=== PATIENT | female | born 1980 | race Caucasian/White ===

== ENCOUNTER 2020-07-15 16:53 | Emergency (ER) | payer MEDICAID ==
--- NOTE | 2020-07-15 17:36 | EDM.PDOC ---
ED HPI GENERAL MEDICAL PROBLEM - General Chief Complaint: Skin Complaint Stated Complaint: POSSIBLE LICE Time Seen by Provider: 07/15/20 17:15 - History of Present Illness INITIAL COMMENTS - FREE TEXT/NARRATIVE: HISTORY AND PHYSICAL: History of present illness: This is a 39-year-old female with no significant past medical history who presents ER today secondary to wanting to be evaluated to see if she has lice. She reports that she was at her aunt's house in [place] when her aunt was braiding her daughter's hair and noticed a lice in her hair. Mother reports that she drove down from [place] back home where she lives and came here for second opinion to see if her her and her daughter had lice. She reports that she has 6 children who live at home with her. She reports that she sleeps with her daughter and is concerned that if her daughter has lice that she has lice to. She reports that she also has psoriasis in her scalp so she has been itching constantly ever since she was told that she may have lice. Mother denies any other complaints Review of systems: As per history of present illness and below otherwise all systems reviewed and negative. Past medical history: As per history of present illness and as reviewed below otherwise noncontributory. Surgical history: As per history of present illness and as reviewed below otherwise noncontributory. Social history: No reported history of drug abuse. Family history: As per history of present illness and as reviewed below otherwise noncontributory. Physical exam: This patient was seen and evaluated during the 2019 SARS-CoV-2 novel coronavirus pandemic period. Community viral transmission is ongoing at time of this encounter and the emergency department is operating under pandemic response procedures. Constitutional: Patient is oriented to person, place, and time. Appears well- developed and well-nourished. No distress. HEENT: Moist mucous membranes Head: Normocephalic and atraumatic Eyes: Right eye exhibits no discharge. Left eye exhibits no discharge. No scleral icterus Neck: Normal range of motion. No tracheal deviation present. Cardiovascular: Normal rate and regular rhythm. Pulmonary: Effort normal, no respiratory distress. Abdominal: No distention Musculoskeletal: Normal range of motion Neurologic: Alert and oriented to person, place and time. Skin: [place], warm and dry. Psychiatric: Normal mood and affect. Behavior is normal. Judgment and thought content normal. Nursing note and vital signs have been reviewed Patient's physical exam is significant for no nits or lice identified in her scalp. Diagnostics: [] Therapeutics: [] Assessment and plan: 39-year-old female who presents ER today for evaluation of possible lice. Patient's daughter has lice that was identified by her aunt. After evaluating patient's daughter there does appear to be nits and I did see 1 bug that appeared to be lice in her scalp. I recommended to the patient that she should initiate therapy with antilice treatment and to treat her home by washing all sheets and putting everything in a bag. Definitive disposition and diagnosis as appropriate pending reevaluation and review of above. - Related Data Home Meds: Home Meds Permethrin [Permethrin 1% lotion] 60 ml TP WEEKLY #2 bottle 07/15/20 [Rx] ED ROS GENERAL - Review of Systems Review Of Systems: See Below ED EXAM, SKIN/RASH Exam: See Below Departure - Departure Time of Disposition: 17:32 Disposition: Home, Self-Care 01 Condition: Good Clinical Impression: Head lice - Discharge Information Instructions: Lice, Adult Referrals: Parvin Hernandez NP [Primary Care Provider] - Additional Instructions: You have been seen and evaluated in ER today secondary to concerns for head lice. Although we are unable to identify any nits or lice in her hair, it does appear that your daughter does have infestation of lice/nits identified. You will be called in a prescription for permethrin 1% to use as directed. The following information is given to patients seen in the emergency department who are being discharged to home. This information is to outline your options for follow-up care. We provide all patients seen in our emergency department with a follow-up referral. The need for follow-up, as well as the timing and circumstances, are variable depending upon the specifics of your emergency department visit. If you don't have a primary care physician on staff, we will provide you with a referral. We always advise you to contact your personal physician following an emergency department visit to inform them of the circumstance of the visit and for follow-up with them and/or the need for any referrals to a consulting specialist. The emergency department will also refer you to a specialist when appropriate. This referral assures that you have the opportunity for follow-up care with a specialist. All of these measure are taken in an effort to provide you with optimal care, which includes your follow-up. Under all circumstances we always encourage you to contact your private physician who remains a resource for coordinating your care. When calling for follow-up care, please make the office aware that this follow-up is from your recent emergency room visit. If for any reason you are refused follow-up, please contact the [facility] Department at and asked to speak to the emergency department charge nurse. [facility] [address] [place] [address] [address]
== END 2020-07-15 17:59 | disposition home or self-care (01) ==
LOC: MW.ED 16:53
DX: B85.0 Pediculosis due to Pediculus humanus capitis (principal)
CPT/HCPCS: 99282; 99283

== ENCOUNTER 2021-05-17 11:26 | Emergency (ER) | payer MEDICAID ==
[2021-05-17] MEDS ORDERED: Sodium Chloride 0.9% 10 ML Syringe FLUSH PRN (11:43)
[2021-05-17] MEDS ORDERED: Lactated Ringers 1,000 ML IV ONE (11:43)
[2021-05-17] MEDS ORDERED: Ondansetron 4 MG/2 ML SDV IVPUSH ONE (11:43)
[2021-05-17] MEDS ORDERED: Sodium Chloride 0.9% 2.5 ML Syringe FLUSH PRN (11:43)
[2021-05-17] MEDS ORDERED: Loperamide 2 MG Cap PO STA (11:45)
[2021-05-17] MEDS ORDERED: Pantoprazole 40 MG Tab.CR PO STA (11:45)
[2021-05-17] MEDS ORDERED: Acetaminophen 325 MG Tab PO ONE (12:19)
[2021-05-17 12:25] LABS: BLOOD UREA NITROGEN,BUN 11 mg/dL (7.0-18.0); CARBON DIOXIDE,CO2 23.8 mmol/L (21.0-32.0); CHLORIDE,CL 103 mmol/L (98-107); GLUCOSE RANDOM 105 mg/dL (74-106); LIPASE 36 U/L (73-393); POTASSIUM,K 3.6 mmol/L (3.5-5.1); SODIUM,NA 138 mmol/L (136-145)
[2021-05-17] MEDS ORDERED: Iopamidol 755 MG/ML 500 ML Multipack Bottle IVPUSH STA (13:34)
== END 2021-05-17 15:53 ==
LOC: MW.ED 11:26
DX: R19.7 Diarrhea, unspecified (principal); R11.2 Nausea with vomiting, unspecified; Z88.0 Allergy status to penicillin; Z72.0 Tobacco use
CPT/HCPCS: 36415; 74177; 80053; 81001; 81025; 83690; 85025; 96374; 99284; A9270; J2405; J3490; J7120; Q9967